=== PATIENT | male | born 1970 | race Caucasian/White ===

== ENCOUNTER 2025-01-17 20:17 | Emergency (ER) | payer OTHER ==
[2025-01-17] MEDS ORDERED: Ketorolac Tromethamine 30 MG (1 mL) VIAL ONE (22:16)
== END 2025-01-17 23:14 | disposition home or self-care (01) ==
LOC: ERS 20:17
DX: S99.911A Unspecified injury of right ankle, initial encounter (principal); X58.XXXA Exposure to other specified factors, initial encounter; Y93.73 Activity, racquet and hand sports
CPT/HCPCS: 96372; 99283; J1885; J3010